=== PATIENT | male | born 1945 | race Caucasian/White ===

== ENCOUNTER 2016-08-16 16:07 | Emergency (ER) | payer MEDICARE, OTHER ==
[~2016-08-16 16:07] MED LIST: ALTACE PO; ASPIRIN PO; CENTRUM SILVER PO; LANOXIN PO; SIMVASTATIN40 MG PO; SYNTHROID PO; TAMBOCAR PO; TOPROL XL PO; ZESTRIL2.5 M1 PO
[2016-08-16 18:37] LABS: BASOPHIL% 0.4 % (0-2.5); EOSINOPHIL# 0.2 X10e3 (0-0.7); EOSINOPHIL% 1.6 % (0.0-7.0); HEMATOCRIT 43.2 % (38.0-50.0); LYMPHOCYTE# 1.9 X10e3 (1.0-3.5); LYMPHOCYTE% 15.2 % (17.0-45.0); MEAN CELL VOLUME 89.6 FL (83-96); MEAN CORPUSCULAR HGB CONC 34.6 g/dL (30-36); MONOCYTE% 8.4 % (3.0-12.0); NEUTROPHIL# 9.1 X10e3 (1.5-7.1); NEUTROPHIL% 74.4 % (40-75); PLATELET COUNT 236 X10e3 (140-420); RED BLOOD COUNT 4.82 X10e (3.90-5.60); RED CELL DISTRIBUTION WIDTH 12.8 % (11.0-15.5); WHITE BLOOD COUNT 12.3 X10e3 (4.0-10.5)
[2016-08-16 18:39] LABS: DIFF IND NO
[2016-08-16 18:59] LABS: CALCIUM SERUM 9.5 mg/dL (8.4-10.2); CREATININE SERUM 0.8 mg/dL (0.6-1.4); GLOM FILT RATE Estimated 90.5 mL/min (>60); POTASSIUM 4.4 mmol/L (3.5-5.1)
[2016-08-16 19:12] LABS: URINE SOURCE CLEAN CATCH
[2016-08-16 19:31] LABS: URINE APPEARANCE CLEAR; URINE BILIRUBIN NEG (NEG); URINE BLOOD NEG (NEG); URINE COLOR YELLOW; URINE GLUCOSE NEG (NEG); URINE KETONE NEG (NEG); URINE LEUKOCYTE ESTERASE NEG (NEG); URINE NITRATE NEG (NEG); URINE PROTEIN NEG (NEG); URINE SPECIFIC GRAVITY 1.019 (1.003-1.035)
[2016-08-16 19:40] LABS: CULTURE INDICATED? NO
== END 2016-08-16 20:50 | disposition home or self-care (01) ==
LOC: CED 16:07
PROVIDERS: Emergency Medicine
DX: R33.9 Retention of urine, unspecified (principal); I10 Essential (primary) hypertension
CPT/HCPCS: 51702; 80048; 81003; 85025; 99284